=== PATIENT | female | born 1955 | race Caucasian/White ===

== ENCOUNTER 2020-09-10 16:29 | Emergency (ER) | payer OTHER ==
[~2020-09-10 16:29] MED LIST: FLAGYL500 MG PO
[2020-09-10 18:21] LABS: HEMOGLOBIN 15.4 gm/dl (12.3-15.3); RED BLOOD COUNT 5.07 M/UL (4.00-5.10); WHITE BLOOD COUNT 7.2 K/UL (4.5-11.0)
[2020-09-10 18:50] LABS: BUN/CREATININE RATIO 17 (0-10)
== END 2020-09-10 21:58 | disposition home or self-care (01) ==
LOC: ER1 16:29
PROVIDERS: Emergency Medicine
DX: R07.2 Precordial pain (principal); I10 Essential (primary) hypertension; F17.200 Nicotine dependence, unspecified, uncomplicated
CPT/HCPCS: 71045; 80053; 82550; 82553; 83874; 84484; 85025; 93005; 99285